=== PATIENT | male | born 1965 | race Caucasian/White ===

== ENCOUNTER → 2022-04-20 | Outpatient (CLI) | payer BC ==
--- NOTE | 2022-04-20 15:05 | XR ---
EXAMINATION TYPE: XR chest 2V DATE OF EXAM: 04/20/2022 COMPARISON: None INDICATION: Post covid, short of breath TECHNIQUE: Frontal and lateral views of the chest are obtained. FINDINGS: The heart size is normal. The pulmonary vasculature is normal. The lungs are clear. IMPRESSION: 1. No acute pulmonary process.
== END | disposition home or self-care (01) ==
LOC: RADXRYALE 14:51
PROVIDERS: ATTEND Family Medicine
DX: U09.9 Post COVID-19 condition, unspecified (principal); R06.02 Shortness of breath
CPT/HCPCS: 71046

== ENCOUNTER 2024-04-30 07:42 | Day surgery (SDC) | payer BC ==
[~2024-04-30 07:42] MED LIST: LACTATED RINGERS 1,000 ML IV SCH
[2024-04-30 08:10] VITALS: RESP 20; TEMP 97
[2024-04-30] MEDS ORDERED: LIDOCAINE 1% INJ 10MG/ML (20 ML MDV) ONE (08:14)
[2024-04-30] MEDS ORDERED: PROPOFOL 10 MG/ML 20 ML VIAL IV ONE (08:14)
[2024-04-30] MEDS ORDERED: fentaNYL (PF) 50 MCG/ML 2 ML AMP ONE (08:14)
[2024-04-30] MEDS: IV FLUID CONTINUATION 1,000 ML IV ONE (08:15)
--- NOTE | 2024-04-30 08:23 | P.GSHP ---
History of Present Illness H&P Date: 04/30/24 Chief Complaint: epigastric pain, GERD history of colon polyps this is a 58-year-old male who presents today for EGD and colonoscopy. Patient has complaints of epigastric pain, GERD. He's HAD previous history of colon polyps. Past Medical History Past Medical History: GERD/Reflux, Hyperlipidemia, Hypertension History of Any Multi-Drug Resistant Organisms: None Reported Past Surgical History: Cholecystectomy Past Anesthesia/Blood Transfusion Reactions: No Reported Reaction Smoking Status: Former smoker - Past Family History Mother Family Medical History: Cancer Additional Family Medical History / Comment(s): mealnoma Medications and Allergies Home Medications Medication Instructions Recorded Confirmed Type Citalopram Hydrobromide 10 mg PO DAILY 04/28/24 04/28/24 History [Citalopram HBr] Diphenoxylate HCl/Atropine 1 each PO TID 04/28/24 04/28/24 History [Lomotil 2.5-0.025 mg Tablet] Losartan/Hydrochlorothiazide 1 tab PO DAILY 04/28/24 04/28/24 History [Losartan-Hctz 100-25 mg Tab] Omeprazole 20 mg PO DAILY 04/28/24 04/28/24 History Rosuvastatin Calcium 20 mg PO DAILY 04/28/24 04/28/24 History Allergies Allergy/AdvReac Type Severity Reaction Status Date / Time No Known Allergies Allergy Verified 04/30/24 07:59 Surgical - Exam Vital Signs Temp Pulse Resp BP Pulse Ox 97.0 F L 93 20 126/80 99 04/30/24 08:09 04/30/24 08:09 04/30/24 08:09 04/30/24 08:09 04/30/24 08:09 - General well developed, well nourished, no distress - Eyes PERRL - ENT normal pinna - Neck no masses - Respiratory normal expansion - Cardiovascular Rhythm: regular - Abdomen Abdomen: soft, non tender Assessment and Plan Assessment: epigastric pain, GERD, history: Polyp. We'll perform EGD and colonoscopy.
--- NOTE | 2024-04-30 08:40 | P.OP ---
Date of Procedure: 04/30/24 Preoperative Diagnosis: epigastric pain GERD Hhistory of colon polyps Anesthesia: GETA Pathology: none sent Condition: stable Disposition: PACU Description of Procedure: patient's placed on the endoscopy table lateral position. He received IV sedation. The gastroscope placed oropharynx passed in the esophagus and stomach and through the pylorus. The first and second portion of the duodenum appeared normal. Scope was then brought back the antrum this. Mildly inflamed. A biopsies performed. Scope was unretroflexed and remainder of the stomach appeared normal. The GE junction was at 40 cm. There was no evidence of a hiatal hernia. The distal esophagus appeared normal. Proximal esophagus appeared normal. Scope withdrawn for patient. Next digital rectal exam was performed. This revealed no abnormalities. The flexible colonoscope was then placed patient anus and passed throughout the entire colon. The ileocecal valve was visualized. The cecum, ascending and transverse colon appeared normal. In the descending and sigmoid colon there is some minimal diverticulosis. Scope was brought the rectum and a small sessile polyp was seen. Removed the cold forcep. Scope withdrawn for patient.
[2024-04-30 09:12] VITALS: BP 121/72; PULSE 75
== END 2024-04-30 09:40 | disposition home or self-care (01) ==
LOC: ORWHC2ENDO 07:42
PROVIDERS: ATTEND Surgery
DX: Z12.11 Encounter for screening for malignant neoplasm of colon (principal); K31.9 Disease of stomach and duodenum, unspecified; K29.70 Gastritis, unspecified, without bleeding; K62.1 Rectal polyp; K21.9 Gastro-esophageal reflux disease without esophagitis; E78.5 Hyperlipidemia, unspecified; I10 Essential (primary) hypertension; E11.9 Type 2 diabetes mellitus without complications; F41.9 Anxiety disorder, unspecified; F32.A Depression, unspecified; Z87.891 Personal history of nicotine dependence; Z90.49 Acquired absence of other specified parts of digestive tract; Z86.010 Personal history of colon polyps
CPT/HCPCS: 88305; 45380; 43239; J2001; J3010; J2704

== ENCOUNTER → 2024-05-13 | Outpatient (CLI) | payer BC ==
--- NOTE | 2024-05-13 14:14 | CTL ---
EXAMINATION TYPE: CT Low Dose Lung DATE OF EXAM ORDERED: 05/13/2024 HISTORY: 58-year-old male with Z1 2.2, Z87.891, former smoker with 35 pack-year history. Lung cancer screening CT DLP: 126.[address] CTDI: 3.6 mGy Automated exposure control for dose reduction was used. SCREENING VISIT: Baseline COMPARISON: Old CT 07/25/2012 TECHNIQUE: Low dose computed tomography scan was performed through the chest at 1 mm thick sections a nd reconstructed images in multiple planes at 1 mm and [address] DIAGNOSTIC QUALITY: Satisfactory FINDINGS: The heart is normal size without pericardial effusion. Borderline ectasia ascending aorta 3.5 cm. Conventional arch vessel branching anatomy. Calcified subcarinal and right hilar lymph nodes compatible with prior granulomatous disease. No thor acic lymphadenopathy by CT size criteria. Mild emphysematous changes. Biapical pleural parenchymal scarring. No consolidation or pleural effusi on. Subpleural nodularity posterior right apex remains unchanged. 4 mm pulmonary nodule right middle lobe, axial image 197. 4 mm subpleural pulmonary nodule anterior right lower lung, axial image 172 unchanged. Calcified granuloma superior segment right lower lobe unchanged. Tiny 2 mm anterior right midlung pulmonary nodule, axial image 141. 5 mm subpleural pulmonary nodule anterior right midlung, axial image 118 is unchanged. Visualized upper abdomen shows mildly diminished attenuation of the liver parenchyma suggesting mild hepatic steatosis. Calcified granuloma within the spleen. Bones: Mild degenerative disc disease lower thoracic spine. IMPRESSION: 1. LungRADS 2, benign. A few scattered pulmonary nodules measuring up to 5 mm on baseline screening b ut unchanged back to an older 07/25/2012 CT. 2. COPD with mild emphysema. Evidence of prior granulomatous disease. CT LUNG RAD AND CT CHEST RECOMMENDATION: Lung-Rad 2 Benign Appearance or Behavior: Continue annual sc reening with LDCT in 12 months. S Modifier (other clinically significant findings): None
== END | disposition home or self-care (01) ==
LOC: RADCTMAIN 12:55
PROVIDERS: ATTEND Internal Medicine
DX: Z12.2 Encounter for screening for malignant neoplasm of respiratory organs (principal); J43.9 Emphysema, unspecified; J44.9 Chronic obstructive pulmonary disease, unspecified; R91.8 Other nonspecific abnormal finding of lung field; Z87.891 Personal history of nicotine dependence
CPT/HCPCS: 71271

== ENCOUNTER → 2024-08-04 | Outpatient (CLI) | payer BC ==
[2024-08-04 15:52] VITALS: BP 128/82; PULSE 88; RESP 16; TEMP 98.5
--- NOTE | 2024-08-04 16:53 | P.SLEEP ---
History of Present Illness H&P Date: 08/04/24 This is a 59-year-old male patient who is coming in today for sleep apnea evaluation. The patient has a strong family history. He snores. His sleep is fragmented. Nevertheless, he has difficulties in sleep initiation. He takes an at least 30 minutes to fall asleep and sometimes more. Lives in [place] and he commutes back and forth to [place] as the patient works for [employer]. The patient struggles to stay awake on his way back home. Typically goes to bed around 9 PM and he gets out of bed at around 3:40 AM in the morning. He wakes up to an alarm. He struggles to fall asleep during weekdays. On weekends, he can easily fall asleep at 10 PM and gets up 9 AM in the morning. During weekdays, he averages around 5 hours of sleep. While asleep, he snores and it has been noted that he has occasional apneas. No grinding. Difficulties in following sleep is mainly attributed to work-related stress and anxiety. He tells that he cannot shut down his brain to fall asleep. He denies waking up choking or gasping for air. No restlessness in lower extremities. He has chronic anxiety and depression and he is maintained on citalopram. No recent weight gain or weight loss. Alcoholism. No substance abuse. No smoking. Marijuana Gummies to fall asleep in a chair. His weight has remained stable over the years. No history of any motor vehicle accidents because of feeling drowsy or sleepy. Review of Systems Constitutional: Reports daytime sleepiness, Reports fatigue Eyes: denies as per HPI, denies blurred vision, denies bulging eye, denies decreased vision, denies diplopia, denies discharge, denies dry eye, denies irritation, denies itching, denies pain, denies photophobia, denies loss of peripheral vision, denies loss of vision, denies tunnel vision/blind spots Ears: deny: decreased hearing, ear discharge, earache, tinnitus Ears, nose, mouth and throat: Reports as per HPI Breasts: absent: as per HPI, gynecomastia Respiratory: Reports as per HPI, Reports snoring Gastrointestinal: Reports as per HPI Genitourinary: Reports as per HPI Musculoskeletal: Reports as per HPI Musculoskeletal: absent: ankle pain, ankle stiffness, ankle swelling, as per HPI, elbow pain, elbow stiffness, elbow swelling, foot pain, foot stiffness, foot swelling, hand pain, hand stiffness, hand swelling, hip pain, hip stiffness, hip swelling, knee pain, knee stiffness, knee swelling, shoulder pain, shoulder stiffness, shoulder swelling, wrist pain, wrist stiffness, wrist swelling Integumentary: Reports as per HPI Neurological: Reports as per HPI Psychiatric: Reports as per HPI, Reports anxiety, Reports depression Endocrine: Reports as per HPI, Reports fatigue Hematologic/Lymphatic: Reports as per HPI Allergic/Immunologic: Reports as per HPI Past Medical History Past Medical History: GERD/Reflux, Hyperlipidemia, Hypertension Additional Past Medical History / Comment(s): Chronic anxiety/depression, hypertension, hyperlipidemia, irritable bowel syndrome, acid reflux, BPH, ere ctile dysfunction History of Any Multi-Drug Resistant Organisms: None Reported Past Surgical History: Cholecystectomy Past Anesthesia/Blood Transfusion Reactions: No Reported Reaction Past Psychological History: Anxiety, Depression Smoking Status: Former smoker Past Alcohol Use History: Rare Additional Past Alcohol Use History / Comment(s): quit 2011 Past Drug Use History: Marijuana Additional Drug Use History / Comment(s): gummies none for 24 hours prior to procedure - Past Family History Mother Family Medical History: Cancer, CVA/TIA, Hyperlipidemia, Hypertension, Pneumonia, Rheumatoid Arthritis (RA) Additional Family Medical History / Comment(s): melanoma, restless legs, headaches Father Family Medical History: CVA/TIA, GERD/Reflux, Hypertension, Rheumatoid Arthritis (RA) Medications and Allergies Home Medications Medication Instructions Recorded Confirmed Type Citalopram Hydrobromide 10 mg PO DAILY 04/28/24 08/04/24 History [Citalopram HBr] Diphenoxylate HCl/Atropine 1 each PO TID 04/28/24 08/04/24 History [Lomotil 2.5-0.025 mg Tablet] Losartan/Hydrochlorothiazide 1 tab PO DAILY 04/28/24 08/04/24 History [Losartan-Hctz 100-25 mg Tab] Omeprazole 20 mg PO DAILY 04/28/24 08/04/24 History Rosuvastatin Calcium 20 mg PO DAILY 04/28/24 08/04/24 History Allergies Allergy/AdvReac Type Severity Reaction Status Date / Time No Known Allergies Allergy Verified 04/30/24 07:59 Physical Exam Vitals: Vital Signs Temp Pulse Resp BP Pulse Ox 08/04/24 15:51 98.5 F 88 16 128/82 97 Intake and Output 08/04/24 08/04/24 08/04/24 06:59 14:59 22:59 Other: Weight 91.172 kg The patient appeared well nourished and normally developed. Vital signs as documented. Head exam is unremarkable. No scleral icterus or corneal arcus noted. Neck is without jugular venous distension, thyromegaly, or carotid bruits. Carotid upstrokes are brisk bilaterally. Lungs are clear to auscultation and percussion. Cardiac exam reveals the PMI to be normally sized and situated. Rhythm is regular. First and second heart sounds normal. No murmurs, rubs or gallops. Abdominal exam reveals normal bowel sounds, no masses, no organomegaly and no aortic enlargement. Extremities are nonedematous and both femoral and pedal pulses are normal. Examination of the skin revealed no evidence of significant rashes, suspicious appearing nevi or other concerning lesions. Neurologically, the patient is awake and alert and the patient does not have any focal neurological deficit. Cranial nerves are essentially intact. Assessment and Plan Plan: Chronic hypersomnia and fatigue with an [place] score of 4. Patient has difficulties with sleep quality and quantity. He is averaging around 4 to 5 hours of sleep during weekdays and there is a suspicion that he may have an underlying obstructive sleep apnea. He does have a component of sleep onset insomnia. He also reports that his sleep is quite fragmented. Chronic anxiety/mild depression maintained on citalopram. Hypertension Hyperlipidemia Acid reflux Positive family history for obstructive sleep apnea Plan Discussed measures that can improve his ability to fall asleep. This includes relaxation techniques, yoga, meditation, music therapy. Marijuana Gummies have been utilized with success and he may continue with those. I am interested in obtaining a polysomnography on this patient. I came to find out that the patient sleeps better on weekends. Going to do a weekend study preferably a Saturday study to evaluate the presence of a sleep breathing disorder. Based on those results, we will make recommendations if further treatment regarding obstructive sleep apnea is needed. Meanwhile, we will continue with conservative measures of improving sleep hygiene measures, relaxation techniques, sleep promoting techniques, and continue citalopram with the p otential of adding an anxiolytic if needed in the future. Will follow. Sleep Note - Sleep Data ESS Total: 4 - Sleep Note Sleep Note: Temperature: 98.5 F Pulse Rate: 88 Respiratory Rate: 16 Blood Pressure: 128/82 SpO2: 97 Height: 5 ft 8.5 in Weight: 91.172 kg BMI: Neck Circumference: 15.7
== END ==
LOC: 3 N SLEEP 15:22
PROVIDERS: ATTEND Internal Medicine Critical Care Medicine
CPT/HCPCS: 99211

== ENCOUNTER → 2024-09-03 | Outpatient (CLI) | payer BC ==
--- NOTE | 2024-09-09 22:54 | P.PCN ---
Date of Procedure: 09/03/24 Operative Findings: This is a 59-year-old male patient who is coming in today for sleep apnea evaluation. The patient has a strong family history. He snores. His sleep is fragmented. Nevertheless, he has difficulties in sleep initiation. He takes an at least 30 minutes to fall asleep and sometimes more. Lives in [place] and he commutes back and forth to [place] as the patient works for [employer]. The patient struggles to stay awake on his way back home. Typically goes to bed around 9 PM and he gets out of bed at around 3:40 AM in the morning. He wakes up to an alarm. He struggles to fall asleep during weekdays. On weekends, he can easily fall asleep at 10 PM and gets up 9 AM in the morning. During weekdays, he averages around 5 hours of sleep. While asleep, he snores and it has been noted that he has occasional apneas. No grinding. Difficulties in following sleep is mainly attributed to work-related stress and anxiety. He tells that he cannot shut down his brain to fall asleep. He denies waking up choking or gasping for air. No restlessness in lower extremities. He has chronic anxiety and depression and he is maintained on citalopram. No recent weight gain or weight loss. Alcoholism. No substance abuse. No smoking. Marijuana Gummies to fall asleep in a chair. His weight has remained stable over the years. No history of any motor vehicle accidents because of feeling drowsy or sleepy. Pertinent physical findings Body mass index of 30.1 Technical description The [employer] system was used to complete his home sleep study. This is a type III home sleep study evaluation. The total recording duration was 7 hours and 11 minutes. The study started at 8:49 PM and ended at 4 AM. There was a total of 6 hours and 59 minutes of flow monitoring and 6 hours and 58 minutes of oxygen saturation monitoring and this was an adequate study Results The respiratory analysis showed a total of 5 obstructive apneas and 10 obstructive hypopneas. The resulting AHI was 2.1. Oxygenation analysis No significant nocturnal oxygen saturations encountered and the patient was able to maintain a pulse ox above 90% throughout the sleep study Cardiac summary The average heart rate was 67 with a minimum heart rate of 50 and a maximum hear t rate of 102 Assessment Primary snoring, no evidence of any significant sleep breathing disorder Chronic hypersomnia and fatigue with an [place] score of 4. Patient has difficulties with sleep quality and quantity. He does have a component of sleep onset insomnia. He also reports that his sleep is quite fragmented. Chronic anxiety/mild depression maintained on citalopram. Hypertension Hyperlipidemia Acid reflux Positive family history for obstructive sleep apnea Plan Discussed measures that can improve his ability to fall asleep. This includes relaxation techniques, yoga, meditation, music therapy. Marijuana Gummies have been utilized with success and he may continue with those. Home sleep study was negative for sleep apnea, as such there is no need for CPAP therapy Meanwhile, we will continue with conservative measures of improving sleep hygiene measures, relaxation techniques, sleep promoting techniques, and continue citalopram with the potential of adding an anxiolytic if needed in the future. Will follow.
== END ==
LOC: 3 N SLEEP 16:50
PROVIDERS: ATTEND Internal Medicine Critical Care Medicine
DX: G47.33 Obstructive sleep apnea (adult) (pediatric) (principal); G47.10 Hypersomnia, unspecified; G47.00 Insomnia, unspecified; I10 Essential (primary) hypertension; F32.A Depression, unspecified; F41.9 Anxiety disorder, unspecified; E78.5 Hyperlipidemia, unspecified; K21.9 Gastro-esophageal reflux disease without esophagitis; R53.83 Other fatigue; Z79.899 Other long term (current) drug therapy